=== PATIENT | female | born 1975 | race Two or more races ===

== ENCOUNTER → 2017-08-08 | Outpatient (CLI) | payer OTHER ==
[2017-08-11 10:23] LABS: Hepatitis B Surface Antibody Negative
[2017-08-11 10:33] LABS: Hepatitis B Surface Antigen Negative (Negative)
== END | disposition home or self-care (01) ==
LOC: LAB 15:08
PROVIDERS: ATTEND Nurse Practitioner
DX: S51.859A Open bite of unspecified forearm, initial encounter (principal); Z77.21 Contact with and (suspected) exposure to potentially hazardous body fluids
CPT/HCPCS: 36415; 86703; 86706; 86803; 87340

== ENCOUNTER → 2017-10-03 | Outpatient (CLI) | payer OTHER ==
[2017-10-03 10:19] LABS: Hepatitis B Surface Antibody Negative
[2017-10-03 10:29] LABS: Hepatitis B Surface Antigen < 0.10 (Negative)
== END | disposition home or self-care (01) ==
LOC: LAB 08:14
PROVIDERS: ATTEND Nurse Practitioner
DX: Z57.8 Occupational exposure to other risk factors (principal)
CPT/HCPCS: 36415; 86703; 86706; 86803; 87340

== ENCOUNTER → 2017-11-04 | Outpatient (CLI) | payer OTHER ==
[2017-11-07 09:25] LABS: Hepatitis B Surface Antibody Negative
[2017-11-07 12:29] LABS: Hepatitis B Surface Antigen Negative (Negative)
== END | disposition home or self-care (01) ==
LOC: LAB 16:17
PROVIDERS: ATTEND Nurse Practitioner
DX: S51.852A Open bite of left forearm, initial encounter (principal)
CPT/HCPCS: 36415; 86703; 86706; 86803; 87340

== ENCOUNTER → 2018-03-03 | Outpatient (CLI) | payer OTHER ==
[2018-03-06 13:34] LABS: Hepatitis B Surface Antibody Negative
[2018-03-06 14:39] LABS: Hepatitis B Surface Antigen Negative (Negative)
== END | disposition home or self-care (01) ==
LOC: LAB 09:45
PROVIDERS: ATTEND Preventive Medicine Preventive Medicine/Occupational Environmental Medicine
DX: S51.852A Open bite of left forearm, initial encounter (principal); X58.XXXA Exposure to other specified factors, initial encounter; Y93.89 Activity, other specified; Y92.89 Other specified places as the place of occurrence of the external cause; Y99.8 Other external cause status
CPT/HCPCS: 36415; 86703; 86706; 86803; 87340

== ENCOUNTER 2022-07-29 06:18 | Inpatient (IN) | payer OTHER ==
[2022-07-26 12:55] LABS: Basophils # (auto) 0.1 10 ^3/uL (0-0.2); Eosinophils # (auto) 0.1 10 ^3/uL (0-0.8); Eosinophils % (auto) 1.7 % (0.0-7.0); Hemoglobin 13.6 g/dL (12.2-16.2); Lymphocytes # (auto) 2.8 10 ^3/uL (0.4-5.4); Lymphocytes % (auto) 33.6 % (10.0-50.0); Mean Corpuscular Hemoglobin 29.9 pg (28.0-32.0); Monocytes # (auto) 0.5 10 ^3/uL (0-1.3); Monocytes % (auto) 5.8 % (0.0-12.0); Neutrophils # (auto) 4.9 10 ^3/uL (1.6-8.6); Neutrophils % (auto) 57.9 % (37.0-80.0); Nucleated Red Blood Cells % 0.6 %; Red Blood Cells 4.55 10^6/uL (4.0-5.20); Red Cell Distribution Width 13.6 % (11.8-14.3); White Blood Cell 8.5 10^3/uL (4.4-10.8)
[2022-07-26 13:11] LABS: INR 0.88 (0.9-1.15); Urine Bacteria FEW /hpf (None Seen); Urine Blood 1+ /uL (Negative); Urine Mucus FEW (None Seen); Urine Specific Gravity 1.017 (1.001-1.035); Urine WBC 2 /hpf (0 - 5)
[2022-07-26 13:27] LABS: Albumin 3.7 g/dL (3.4-5.0); BUN/Creatinine Ratio 14.3; Bilirubin, Total 0.4 mg/dL (0.2-1.0); Calcium 8.7 mg/dL (8.5-10.1); Potassium 3.8 mmol/L (3.5-5.1); Total Protein 7.4 g/dL (6.4-8.2)
[~2022-07-29] VITALS: Ht 160 cm; Wt 101.9 kg
[~2022-07-29 06:18] MED LIST: CLON0.1T PO; GABA100C9 PO; METH2.5T PO; OMEP20TA PO
[2022-07-29] MEDS ORDERED: ceFAZolin 1GM/50ML 100 ML IV ONE (06:35)
[2022-07-29] MEDS ORDERED: GLYCOPYRROLATE 0.2 MG/ML 1ML VIAL ONE (07:15)
[2022-07-29] MEDS ORDERED: PROPOFOL 10 MG/ML 20 ML IV ONE ×4 (07:15→10:15)
[2022-07-29] MEDS ORDERED: ONDANSETRON HCL 4 MG/2 ML VIAL ONE (07:15)
[2022-07-29] MEDS ORDERED: LIDOCAINE 2% (LOCAL ANESTH.) PF 5ml SDV ONE ×2 (07:15→07:18)
[2022-07-29] MEDS ORDERED: ROCURONIUM 10MG/ML 10ML VIAL IV ONE (07:15)
[2022-07-29] MEDS ORDERED: DexAMETHasone SOD PHOS 10MG/1ML VIAL INJ ONE (07:15)
[2022-07-29] MEDS ORDERED: LIDOCAINE 2% JELLY 11ml (GLYDO) ONE (07:28)
[2022-07-29] MEDS ORDERED: fentaNYL CITRATE 100 MCG/2 ML VL ONE (08:12)
[2022-07-29] MEDS ORDERED: MORPHINE SULFATE INJ 2 MG/ml SYRG IV PRN (11:15)
[2022-07-29] MEDS ORDERED: NITROGLYCERIN 0.4 MG SL TAB SL PRN (11:15)
[2022-07-29] MEDS ORDERED: MORPHINE SULFATE 4 MG/ML SYR/VIAL IV PRN (11:15)
[2022-07-29] MEDS ORDERED: ACETAMINOPHEN 325 MG TAB PO PRN (11:15)
[2022-07-29] MEDS ORDERED: ONDANSETRON HCL 4 MG/2 ML VIAL IV PRN ×2 (11:15→11:30)
[2022-07-29] MEDS ORDERED: DexAMETHasone SOD PHOS 10MG/1ML VIAL INJ IV ONE (11:15)
[2022-07-29] MEDS ORDERED: ePHEDrine SULFATE 50 MG/ML AMP IV PRN (11:30)
[2022-07-29] MEDS ORDERED: fentaNYL CITRATE 100 MCG/2 ML VL IV PRN (11:30)
[2022-07-29] MEDS ORDERED: FLUMAZENIL 0.1 MG/ML INJ 10ML MDV IV PRN (11:30)
[2022-07-29] MEDS ORDERED: hydrALAZINE HCL 20 MG/ML VL IV PRN (11:30)
[2022-07-29] MEDS ORDERED: LABETALOL HCL 5 MG/ML 4ML SYRINGE IV PRN (11:30)
[2022-07-29] MEDS ORDERED: NALOXONE HCL 0.4 MG/ML VIAL IV PRN (11:30)
[2022-07-29] MEDS ORDERED: HYDROmorphone HCL 2 MG/ML VL/or syr IV PRN (11:30)
[2022-07-29 13:07] VITALS: BP_SYST 149; BP_SYST 159; BP_DIAS 88; BP_DIAS 90
[2022-07-29] MEDS: HYDROcodone-ACET 10/325MG TAB PO PRN ×2 (14:00→21:03)
[2022-07-29] MEDS: D5W/SOD CHLO 0.9% 1,000 ML IV SCH ×2 (14:10→21:04)
[2022-07-29] MEDS: ceFAZolin 1GM/50ML 50 ML IV SCH ×2 (14:13→22:46)
[2022-07-29] MEDS: CYCLOBENZAPRINE HCL 10 MG TAB PO SCH ×2 (16:06→21:03)
[2022-07-29 17:00] VITALS: BP 145/81
[2022-07-29] MEDS: DOCUSATE SOD 100 MG CAP PO SCH (21:04)
[2022-07-29 22:00] VITALS: BP 142/69
[2022-07-30] MEDS: HYDROcodone-ACET 10/325MG TAB PO PRN ×2 (04:14→14:23)
[2022-07-30 05:00] VITALS: BP 141/66
[2022-07-30] MEDS: CYCLOBENZAPRINE HCL 10 MG TAB PO SCH ×2 (06:06→14:23)
[2022-07-30] MEDS: D5W/SOD CHLO 0.9% 1,000 ML IV SCH (08:15)
[2022-07-30 08:30] VITALS: BP 117/82
[2022-07-30] MEDS: DOCUSATE SOD 100 MG CAP PO SCH (08:55)
[2022-07-30 11:39] VITALS: BP 117/82
[2022-07-30 12:30] VITALS: BP 118/66
== END 2022-07-30 17:53 | disposition home health service (06) | DRG 518 ==
LOC: SUR 06:18 → TELE 11:20 → TELE-WESTW 12:40
PROVIDERS: ADMIT Orthopaedic Surgery; ATTEND Internal Medicine
PROC: 0RR30JZ Replacement of Cervical Vertebral Disc with Synthetic Substitute, Open Approach (ICD-10-PCS; 2022-07-29)
PROC: 0RB30ZZ Excision of Cervical Vertebral Disc, Open Approach (ICD-10-PCS; 2022-07-29)
PROC: 4A11X4G Monitoring of Peripheral Nervous Electrical Activity, Intraoperative, External Approach (ICD-10-PCS; 2022-07-29)
PROC: 01N10ZZ Release Cervical Nerve, Open Approach (ICD-10-PCS; principal; 2022-07-29 07:30)
DX: M48.02 Spinal stenosis, cervical region (principal); G99.2 Myelopathy in diseases classified elsewhere; Z20.822 Contact with and (suspected) exposure to COVID-19
CPT/HCPCS: 36415; 72040; 76000; 80053; 81001; 81025; 84702; 85025; 85610; 85730; 86850; 86900; 86901; G0378; J0690; J1100; J2001; J2405; J2704